=== PATIENT | female | born 2000 | race Caucasian/White ===

== ENCOUNTER → 2023-10-10 09:57 | Outpatient (BNVA) | payer MEDICAID, SELFPAY | PROVIDERS: Family Provider Family Medicine; PCP Nurse Practitioner; Visit Provider Nurse Practitioner | DX: R63.6 Underweight (principal) | CPT/HCPCS: 80053; 84443; 85025 ==

== ENCOUNTER → 2023-11-22 10:02 | Outpatient (BNVA) | payer MEDICAID, SELFPAY | PROVIDERS: Family Provider Family Medicine; PCP Nurse Practitioner; Visit Provider Nurse Practitioner Family | DX: N92.6 Irregular menstruation, unspecified (principal); N91.1 Secondary amenorrhea | CPT/HCPCS: 81025; 84702 ==

== ENCOUNTER → 2024-01-19 10:15 | Outpatient (BNVA) | payer MEDICAID, SELFPAY | PROVIDERS: Family Provider Family Medicine; PCP Nurse Practitioner; Visit Provider Nurse Practitioner | DX: R05.9 Cough, unspecified (principal) | CPT/HCPCS: 87400; 87426; 87880 ==

== ENCOUNTER → 2024-12-28 13:56 | Outpatient (BNVA) | payer MEDICAID, SELFPAY | PROVIDERS: Family Provider Nurse Practitioner; PCP Nurse Practitioner; Visit Provider Nurse Practitioner | DX: J02.9 Acute pharyngitis, unspecified (principal) | CPT/HCPCS: 87880 ==